=== PATIENT | female | born 1975 | race Caucasian/White ===

== ENCOUNTER 2020-09-16 19:46 | Emergency (ER) | payer OTHER ==
[~2020-09-16] VITALS: Ht 162.6 cm; Wt 127.5 kg
[2020-09-16] MEDS ORDERED: PREDNISONE50 MG PO (20:26)
[2020-09-16] MEDS ORDERED: PROAIR HFA8.5 GM INH (20:26)
[2020-09-16] MEDS ORDERED: PROMETH-CODEIN 65 ML PO (20:27)
[2020-09-16 21:07] VITALS: BP 165/65
== END 2020-09-16 21:08 | disposition home or self-care (01) ==
LOC: M.ERS 19:46
DX: R05 Cough (principal); Z20.822 Contact with and (suspected) exposure to COVID-19; Z98.890 Other specified postprocedural states; Z90.711 Acquired absence of uterus with remaining cervical stump

== ENCOUNTER 2020-09-20 15:42 | Emergency (ER) | payer OTHER ==
[~2020-09-20] VITALS: Ht 162.6 cm; Wt 126.1 kg
[~2020-09-20 15:42] MED LIST: PREDNISONE50 MG PO; PROAIR HFA8.5 GM INH; PROMETH-CODEIN 65 ML PO
[2020-09-20] MEDS ORDERED: BUTALB-APAP-CA1 EACH PO (17:57)
[2020-09-20 18:05] VITALS: BP 137/79
== END 2020-09-20 18:05 | disposition home or self-care (01) ==
LOC: M.ERS 15:42
DX: R51.9 Headache, unspecified (principal); Z98.890 Other specified postprocedural states; Z79.899 Other long term (current) drug therapy